=== PATIENT | female | born 2000 | race Caucasian/White ===

== ENCOUNTER 2021-03-31 13:54 | Emergency (ER) | payer BC ==
[2021-03-31 14:16] VITALS: BP 131/79; PULSE 87; RESP 16; TEMP 97.9
[2021-03-31 15:38] LABS: Uric Acid 4.8 mg/dL (3.7-7.4)
--- NOTE | 2021-03-31 15:47 | ED ---
Skin/Abscess/FB HPI - General Chief complaint: Skin/Abscess/Foreign Body Stated complaint: Skin on hands peeling Time Seen by Provider: 03/31/21 14:26 Source: patient, family Mode of arrival: ambulatory Limitations: no limitations - History of Present Illness Initial comments: Patient is a 20-year-old female presenting to the emergency Department with c omplaints of color changes to her bilateral hands. She states she's had skin peeling on her palms for the last year, she was prescribed a cream at some point and it did seem to help a little bit. She states the reason she came in today was over the past few days she's been having swelling of both of her fingers as well as color changes noted to her distal fingers on both hands, white in color and also feeling some calluses on the ends of all of her fingers. They have not seen their PCP for this. She denies any fevers or chills, no other symptoms other than her fingers. She states she does ride horses daily, has been for years. She denies history of Raynauds disease. Her only medications are Lexapro and control pill. She has no further complaints at this time. - Related Data Allergies Allergy/AdvReac Type Severity Reaction Status Date / Time No Known Allergies Allergy Verified 03/31/21 14:12 Review of Systems ROS Statement: Those systems with pertinent positive or pertinent negative responses have been documented in the HPI. ROS Other: All systems not noted in ROS Statement are negative. Past Medical History Past Medical History: No Reported History History of Any Multi-Drug Resistant Organisms: None Reported Past Surgical History: No Surgical Hx Reported Past Psychological History: No Psychological Hx Reported Smoking Status: Never smoker Past Alcohol Use History: None Reported Past Drug Use History: None Reported General Exam - General Exam Comments Initial Comments: GENERAL: Patient is well-developed and well-nourished. Patient is nontoxic and in no acute distress. HEAD: Atraumatic, normocephalic. EYES: Pupils equal round and reactive to light, extraocular movements intact, sclera anicteric, conjunctiva are normal. Eyelids were unremarkable. ENT: Nares patent, oropharynx clear without exudates. Moist mucous membranes. NECK: Normal range of motion, supple without lymphadenopathy or JVD. LUNGS: Unlabored respirations. Breath sounds clear to auscultation bilaterally and equal. No wheezes rales or rhonchi. HEART: Regular rate and rhythm without murmurs, rubs or gallops. ABDOMEN: Soft, nontender, normoactive bowel sounds. No guarding, no rebound. No masses appreciated. : Deferred MUSCULOSKELETAL: Normal extremities with adequate strength and normal range of motion. No clubbing or cyanosis. Mild swelling noted to her fingers on both hands. SKIN: Warm, Dry, normal turgor. Patient does have some mild peeling skin noted to palms bilaterally, no rash noted to the palms. She has some pallor discoloration to some of the fingers bilaterally, cap refill on all fingers is normal. Sensation is equal and bilateral. No ischemia noted. Limitations: no limitations Course Vital Signs 03/31/21 14:12 Temperature 97.9 F Pulse Rate 87 Respiratory 16 Rate Blood Pressure 131/79 O2 Sat by Pulse 100 Oximetry Medical Decision Making - Medical Decision Making Patient is a 20-year-old female here with skin changes noted to both hands for the past 2 days also some peeling skin over the past year. Her vitals are stable, exam reveals no alarming symptoms, she does have some mild swelling noted to the fingers, some discoloration noted. No signs of ischemia, no significant pain. I did order a uric acid, AMA and rheumatoid factor, uric acid is normal, the rest are still pending. This could be secondary to the intense squeezing during horseback riding or possible mild Raynauds. Patient will follow up with her primary care physician and dermatology. She is stable for discharge and patient is in agreement with this plan of care. Case discussed Dr. Carr. - Lab Data Lab Results 03/31/21 Range/Units 15:13 Uric Acid 4.8 (3.7-7.4) mg/dL Disposition Clinical Impression: Swelling of finger of both hands, Skin change Disposition: HOME SELF-CARE Condition: Stable Instructions (If sedation given, give patient instructions): Edema (ED) Additional Instructions: Please return to the Emergency Department if symptoms worsen or any other concerns. Recommend elevation of the hands for the mild swelling, follow-up with primary care physician and dermatology as discussed. Is patient prescribed a controlled substance at d/c from ED?: No Referrals: eKesha Spence MD [Primary Care Provider] - 1-2 days Time of Disposition: 15:47
== END 2021-03-31 16:05 | disposition home or self-care (01) ==
LOC: EC 13:54
DX: M79.89 Other specified soft tissue disorders (principal); R23.8 Other skin changes
CPT/HCPCS: 36415; 84550; 86038; 86431; 99283